=== PATIENT | female | born 1930 | race Caucasian/White ===

== ENCOUNTER 2018-08-02 20:00 | Emergency (ER) | payer MEDICARE ==
[2018-08-02 20:27] VITALS: BP 145/70
--- NOTE | 2018-08-02 20:39 | UC ---
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 Negative: Dyspnea - Allergies/Home Medications Allergies/Adverse Reactions: Allergies Allergy/AdvReac Type Severity Reaction Status Date / Time donepezil AdvReac nightmares Verified 08/02/18 20:21 Home Medications: Home Medications Acetaminophen [Extra Strength Non-Aspirin] 1 - 2 tab PO Q6H 08/02/18 [History Confirmed 08/02/18] Apixaban* [Eliquis*] 2.5 mg PO BID 08/02/18 [History Confirmed 08/02/18] Atorvastatin* [Lipitor*] 10 mg PO DAILY 08/02/18 [History Confirmed 08/02/18] Electrolytes/Dextrose [Pedialyte Electrolyte Singles] 12 oz PO TID 08/02/18 [ History Confirmed 08/02/18] Memantine TAB* [Namenda TAB*] 5 mg PO BID 08/02/18 [History Confirmed 08/02/18] Metoprolol Tartrate TAB* [Lopressor TAB*] 25 mg PO DAILY 08/02/18 [History Confirmed 08/02/18] PMH/Surg Hx/FS Hx/Imm Hx Previously Healthy: Yes Endocrine History: Dyslipidemia Cardiovascular History: Atrial Fibrillation Respiratory History: Bronchitis - Surgical History Surgical History: Yes Surgery Procedure, Year, and Place: c-Sect - Family History Known Family History: Positive: Hypertension - Social History Alcohol Use: None Substance Use Type: None Smoking Status (MU): Never Smoked Tobacco Review of Systems All Other Systems Reviewed And Are Negative: Yes Constitutional: Positive: Fever, Chills, Fatigue Skin: Positive: Negative Eyes: Positive: Negative ENT: Positive: Nasal Discharge, Sinus Congestion Respiratory: Positive: Cough Cardiovascular: Positive: Negative Gastrointestinal: Positive: Negative Genitourinary: Positive: Negative Motor: Positive: Negative Neurovascular: Positive: Negative Musculoskeletal: Positive: Myalgia Neurological: Positive: Negative Psychological: Positive: Negative Physical Exam Triage Information Reviewed: Yes Appearance: Well-Appearing, No Pain Distress, Well-Nourished Vital Signs: Initial Vital Signs Temp 100.8 F 08/02/18 20:21 Pulse 105 08/02/18 20:21 Resp 20 08/02/18 20:21 BP 145/70 08/02/18 20:21 Pulse Ox 96 08/02/18 20:21 Vital Signs Reviewed: Yes Eye Exam: Normal Eyes: Positive: Conjunctiva Clear ENT: Positive: Nasal congestion, Uvula midline. Negative: Hearing grossly normal, Nasal drainage, Tonsillar swelling, Tonsillar exudate, Trismus, Muffled voice, Hoarse voice Neck: Positive: Supple, Nontender, No Lymphadenopathy Respiratory: Positive: Lungs clear, Normal breath sounds, No respiratory distress, No accessory muscle use Cardiovascular: Positive: No Murmur, Tachycardia. Negative: RRR, Bradycardia Bowel Sounds: Positive: Present Musculoskeletal: Positive: ROM Intact, No Edema Neurological: Positive: Alert Psychological: Positive: Normal Response To Family Skin Exam: Normal Diagnostics - Radiology No standard instances Radiology Interpretation Completed By: ED Physician Summary of Radiographic Findings: NAD Respiratory Course/Dx - Course Course Of Treatment: UA + leuks - Differential Dx/Diagnosis Provider Diagnosis: Viral URI with cough, Pyuria Discharge - Sign-Out/Discharge Documenting (check all that apply): Patient Departure All imaging exams completed and their final reports reviewed: No Studies - Discharge Plan Condition: Stable Disposition: HOME Prescriptions: Cephalexin CAP* [Keflex CAP*] 500 mg PO BID #12 cap Patient Education Materials: Urinary Tract Infection in Women (ED), Upper Respiratory Infection (ED) Referrals: Tylor Carballo PA [Primary Care Provider] - 2 Days Additional Instructions: possible UTI culture pending - Billing Disposition and Condition Condition: STABLE Disposition: Home
[2018-08-02 20:53] LABS: Influenza A Molecular NEGATIVE (Negative); Influenza B Molecular NEGATIVE (Negative)
[2018-08-02] MEDS ORDERED: Cephalexin CAP* 500 MG PO ONE ×2 (21:52→21:53)
== END 2018-08-02 22:06 | disposition home or self-care (01) ==
LOC: UCCORT 20:00
DX: J06.9 Acute upper respiratory infection, unspecified (principal); R05 Cough; N39.0 Urinary tract infection, site not specified
CPT/HCPCS: 71045; 81003; 87086; 99202; A9270-GY; G0463

== ENCOUNTER 2018-08-11 17:39 | Emergency (ER) | payer MEDICARE ==
[2018-08-11 19:00] VITALS: BP 116/94
--- NOTE | 2018-08-11 19:41 | UC ---
Respiratory Complaint HPI - HPI Summary HPI Summary: pt is accompanied by daughter and caregiver. Pt has dementia. Pt has nasal congestion, cough and daughter and caregiver are concerned that she may have pneumonia - History of Current Complaint Chief Complaint: UCGeneralIllness Stated Complaint: COUGH,CONGESTION Time Seen by Provider: 08/11/18 19:18 Hx Obtained From: Family/Intramural Director Hx Last Menstrual Period: N/A ?: No Onset/Duration: Gradual Onset, Lasting Days, Still Present Timing: Constant Severity Initially: Mild Severity Currently: Moderate Pain Intensity: 0 Character: Cough: Productive Aggravating Factors: Deep Breaths, Recumbent Position Alleviating Factors: Upright Position, Spontaneous Resolution Associated Signs And Symptoms: Positive: Fever, URI, Nasal Congestion - Risk Factors Cardiac Risk Factors: Negative Pseudomonas Risk Factors: Negative Tuberculosis Risk Factors: Negative - Allergies/Home Medications Allergies/Adverse Reactions: Allergies Allergy/AdvReac Type Severity Reaction Status Date / Time donepezil AdvReac nightmares Verified 08/11/18 19:00 PMH/Surg Hx/FS Hx/Imm Hx Previously Healthy: No Cardiovascular History: Cardiac Disease Neurological History: Dementia - Surgical History Surgical History: Yes Surgery Procedure, Year, and Place: c-Sect - Family History Known Family History: Positive: Hypertension - Social History Occupation: Retired Lives: With Family Alcohol Use: None Substance Use Type: None Smoking Status (MU): Never Smoked Tobacco Have You Smoked in the Last Year: No Review of Systems All Other Systems Reviewed And Are Negative: Yes Constitutional: Positive: Chills Skin: Positive: Negative Eyes: Positive: Negative ENT: Positive: Sinus Congestion Respiratory: Positive: Shortness Of Breath, Cough Cardiovascular: Positive: Negative Gastrointestinal: Positive: Negative Genitourinary: Positive: Negative Motor: Positive: Negative Neurovascular: Positive: Negative Musculoskeletal: Positive: Negative Neurological: Positive: Negative Psychological: Positive: Negative Is Patient Immunocompromised?: No Physical Exam Triage Information Reviewed: Yes Appearance: Ill-Appearing, Thin Vital Signs: Initial Vital Signs Temp 100 F 08/11/18 18:54 Pulse 100 08/11/18 18:54 Resp 18 08/11/18 18:54 BP 116/94 08/11/18 18:54 Pulse Ox 98 08/11/18 18:54 Vital Signs Reviewed: Yes Eye Exam: Normal ENT: Positive: Nasal congestion Dental Exam: Normal Neck exam: Normal Respiratory: Positive: No respiratory distress, Decreased breath sounds Cardiovascular: Positive: RRR Musculoskeletal Exam: Normal Neurological Exam: Normal Psychological Exam: Normal Skin Exam: Normal Respiratory Course/Dx - Differential Dx/Diagnosis Differential Diagnosis/HQI/PQRI: Bronchitis Provider Diagnosis: Pneumonia Discharge - Sign-Out/Discharge Documenting (check all that apply): Patient Departure All imaging exams completed and their final reports reviewed: No Studies - Discharge Plan Condition: Stable Disposition: HOME Prescriptions: Azithromycin TAB* [Zithromax TAB (Z-ALBERT) 250 mg #6 tabs] 2 tab PO .TODAY, THEN 1 DAILY #1 labert Loratadine 10 mg PO DAILY #7 tablet predniSONE TAB* [Deltasone 10 MG TAB*] 10 mg PO DAILY #10 tab Patient Education Materials: Pneumonia (ED) Referrals: Tylor Carballo PA [Primary Care Provider] - As Soon As Possible - Billing Disposition and Condition Condition: STABLE Disposition: Home - Attestation Statements Provider Attestation: Per institutional requirements, I have reviewed the chart, however, I was not consulted specifically or made aware of this patient by the midlevel provider. I did not personally evaluate, interact with , or disposition this patient.
[2018-08-11] MEDS ORDERED: DOXYcycline CAP(*) 100 MG PO ONE (19:52)
== END 2018-08-11 20:23 | disposition home or self-care (01) ==
LOC: UCCORT 17:39
DX: J18.9 Pneumonia, unspecified organism (principal); F03.90 Unspecified dementia, unspecified severity, without behavioral disturbance, psychotic disturbance, mood disturbance, and anxiety; Z88.8 Allergy status to other drugs, medicaments and biological substances
CPT/HCPCS: 99212; A9270-GY; G0463